=== PATIENT | female | born 1980 | race American Indian/Alaskan Native ===

== ENCOUNTER 2020-12-10 08:46 | Day surgery (SDC) | payer BC ==
[~2020-12-10 08:46] MED LIST: SODIUM CHLORIDE 0.9% 1000 ML 1,000 ML IV SCH
--- NOTE | 2020-12-10 09:31 | Discharge Summary ---
Providers - Providers Date of Admission: 12/10/20 Date of discharge: 12/10/20 Attending physician: DAMIAN INTERIANO MD Primary care physician: CIELO YEUNG NP Hospitalization Reason for admission: pre-op egd for bariatric surgery Condition: Good Procedures: egd Hospital course: Pt presented for a pre-op EGD as part of planning for up coming bariatric surgery. Procedure was uneventful and pt recovered well and was discharged to home. Disposition: DC- TO HOME OR SELFCARE Final Discharge Diagnosis (Prints w/discharge instructions): gerd, morbid obesity Core Measure Documentation - Palliative Care Palliative Care/ Comfort Measures: Not Applicable - Core Measures Any of the following diagnoses?: none Exam - Physical Exam Narrative exam: unchanged from pre-op Plan Activity: advance as tolerated Diet: low carbohydrate Follow up with: CIELO YEUNG DIRECTOR SOC[employer] WELFARE [Primary Care Provider] - 7 Days
--- NOTE | 2020-12-10 09:34 | Discharge Summary ---
Providers - Providers Date of Admission: 12/10/20 Date of discharge: 12/10/20 Attending physician: DAMIAN INTERIANO MD Primary care physician: CIELO YEUNG NP Hospitalization Reason for admission: pre-op egd for bariatric surgery Condition: Good Procedures: egd Hospital course: Pt presented for a pre-op EGD as part of planning for up coming bariatric surgery. Procedure was uneventful and pt recovered well and was discharged to home. Disposition: DC- TO HOME OR SELFCARE Final Discharge Diagnosis (Prints w/discharge instructions): gerd, morbid obesity Core Measure Documentation - Palliative Care Palliative Care/ Comfort Measures: Not Applicable - Core Measures Any of the following diagnoses?: none Exam - Physical Exam Narrative exam: same as pre-op Plan Activity: advance as tolerated Diet: low carbohydrate Follow up with: CIELO YEUNG [employer]CH[employer]IC [Primary Care Provider] - 7 Days
--- NOTE | 2020-12-10 09:35 | Operative Report ---
Operative Report Operative Report: DATE: 12/10/2020 SURGERY: Upper endoscopy. SURGEON: Sudha Olguin M.D. PROCEDURE: EGD with biopsy PRE OP DX: morbid obesity, GERD POST OP DX: morbid obesity, GERD TYPE OF ANESTHESIA: MAC. ESTIMATED BLOOD LOSS: None. COMPLICATIONS: None. SPECIMENS REMOVED: antral biopsy FINDINGS: 1. Small hiatal hernia. 2. antral gastritis INDICATIONS:INDICATION FOR PROCEDURE: Patient is a 40-year-old female with a long history of morbid obesity. She is planned to have a weight loss procedure and is here for preoperative planning EGD. PROCEDURE DETAILS: After consent was reviewed, patient was taken back to the operating room where patient was placed in the left lateral decubitus position and a bite block was placed in the mouth. After a time-out was called, MAC anesthesia was initiated. I then passed the endoscope into her oropharynx, into her esophagus, visualized the entire esophagus, which was all within normal limits. Z-line was noted to about 36cm from incisors. I then visualized the stomach and the first portion of the duodenum and there were no abnormalities I could clearly visualize except for antral gastritis. A cold forceps biopsy of the antrum was taken and will be sent to pathology to evaluate for H.pylori. I then retroflexed the scope in the stomach and visualized the hiatus and I could see a small hiatal hernia. I then desufflated the stomach and removed the endoscope. Patient tolerated procedure well and was transferred to recovery room in good and stable condition.
--- NOTE | 2020-12-10 09:38 | Anesthesia Consultation ---
Anesthesia Consult and Med Hx Date of service: 12/10/20 - Airway Anesthetic Teeth Evaluation: Good (braces upper and lower) ROM Head & Neck: Adequate Mental/Hyoid Distance: Adequate Mallampati Class: Class II Intubation Access Assessment: Probably Good - Pre-Operative Health Status ASA Pre-Surgery Classification: ASA3 Proposed Anesthetic Plan: MAC - Pulmonary Hx Smoking: No Hx Respiratory Symptoms: No Hx Sleep Apnea: Yes (has not started CPAP yet) - Cardiovascular System Hx Hypertension: Yes - Central Nervous System CVA: No - Endocrine Hx Renal Disease: No Hx Liver Disease: No Hx Insulin Dependent Diabetes: No Hx Non-Insulin Dependent Diabetes: No Hx Thyroid Disease: No - Other Systems Hx Obesity: Yes (BMI 44)
--- NOTE | 2020-12-10 09:38 | Anesthesia Day of Surgery ---
Anesthesia Day of Surgery - Day of Surgery Patient Examined: Yes Patient H&P Reviewed: Yes Patient is NPO: Yes
[2020-12-10] MEDS ORDERED: propofoL 200 MG/20 ML VIAL IV ONE (10:09)
[2020-12-10 11:11] VITALS: BP 152/97
--- NOTE | 2020-12-10 12:36 | Post Anesthesia Evaluation ---
- Post Anesthesia Evaluation Patient Participated: Yes Airway Patent: Yes Stable Respiratory Function: Yes Nausea/Vomiting: No Temp > 96.8F: Yes Pain Manageable: Yes Adequeate Hydration: Yes Anesthesia Complications: No
== END 2020-12-10 08:47 | disposition home or self-care (01) ==
LOC: GIO 08:46
PROVIDERS: ATTEND Surgery
DX: K21.9 Gastro-esophageal reflux disease without esophagitis (principal); E66.01 Morbid (severe) obesity due to excess calories; K29.70 Gastritis, unspecified, without bleeding; K31.89 Other diseases of stomach and duodenum; K44.9 Diaphragmatic hernia without obstruction or gangrene; I10 Essential (primary) hypertension; G47.30 Sleep apnea, unspecified; Z68.41 Body mass index [BMI] 40.0-44.9, adult; Z79.899 Other long term (current) drug therapy
CPT/HCPCS: 43239; 88305; 88342; J2704; J7030

== ENCOUNTER 2020-12-13 09:23 | Outpatient (CLI) | payer BC ==
--- NOTE | 2020-12-13 11:52 | Fluoroscopy Report ---
BARIUM SWALLOW Indication: FUNCTIONAL DYSPEPSIA. Technique: Single and double contrast barium technique utilized to evaluate the esophagus. FINDINGS: To begin the exam, swallowing was evaluated in the lateral position under direct fluorosco py. Swallowing was normal. No mucosal irregularity, mass, mass effect, or critical stenosis. There were no abnormal tertiary c ontractions as seen with dysmotility. No gastroesophageal reflux. IMPRESSION: Unremarkable exam. Fluoroscopic time: 1.7 minutes Number of fluoroscopic images: 21 Signer Name: Richar Antonio Jr, MD Signed: 12/13/2020 11:47 AM Workstation Name: [id number]
== END 2020-12-13 09:24 | disposition home or self-care (01) ==
LOC: FLUORO 09:23
PROVIDERS: ATTEND Surgery
DX: K30 Functional dyspepsia (principal)
CPT/HCPCS: 74220

== ENCOUNTER 2021-02-10 05:55 | Inpatient (IN) | payer BC ==
[2021-02-05 08:03] LABS: Hematocrit 38.7 % (30.3-42.9); Mean Corpuscular HGB Conc 34 % (30-34); Mean Corpuscular Volume 80 fl (79-97); Platelet Count 266 K/mm3 (140-440); Red Blood Count 4.84 M/mm3 (3.65-5.03); Red Cell Distribution Width 14.3 % (13.2-15.2)
[2021-02-05 08:20] LABS: Alanine Aminotransferase 13 units/L (7-56); Albumin 3.7 g/dL (3.9-5); BUN/Creatinine Ratio 11; Blood Urea Nitrogen 10 mg/dL (7-17); Calcium 8.2 mg/dL (8.4-10.2); Hemolysis Index 9
--- NOTE | 2021-02-05 11:18 | Anesthesia Consultation ---
Anesthesia Consult and Med Hx Date of service: 02/10/21 - Airway Anesthetic Teeth Evaluation: Good ROM Head & Neck: Adequate Mental/Hyoid Distance: Adequate Mallampati Class: Class I Intubation Access Assessment: Good - Pulmonary Exam CTA: Yes - Cardiac Exam Cardiac Exam: RRR - Pre-Operative Health Status ASA Pre-Surgery Classification: ASA3 Proposed Anesthetic Plan: General - Pulmonary Hx Smoking: No Hx Respiratory Symptoms: No (normal PFTs) Hx Sleep Apnea: Yes (compliant with CPAP) - Cardiovascular System Hx Hypertension: Yes Hx Heart Attack/AMI: No (normal nuc stress test) Hx Percutaneous Transluminal Coronary Angioplasty (PTCA): No - Central Nervous System CVA: No - Gastrointestinal Hx Gastroesophageal Reflux Disease: No - Endocrine Hx Renal Disease: No Hx Liver Disease: No Hx Insulin Dependent Diabetes: No Hx Non-Insulin Dependent Diabetes: No Hx Thyroid Disease: No - Other Systems Hx Obesity: Yes (BMI 45) - Additional Comments Anesthesia Medical History Comments: No hx anesthetic complications.
[2021-02-10] MEDS ORDERED: ceFAZolin/Water 2 GM/20 ML 2 GM/20 ML SYRINGE IV NR (06:00)
[2021-02-10] MEDS ORDERED: ENOXAPARIN 40 MG/0.4 ML INJ SUB-Q NR (06:00)
[2021-02-10] MEDS ORDERED: GABAPENTIN 500 MG/10 ML ORAL LIQD PO NR (06:00)
[2021-02-10] MEDS ORDERED: ACETAMINOPHEN IV 1,000 MG/100 ML BOTTLE IV NR (06:00)
[2021-02-10] MEDS ORDERED: MIDAZOLAM 2 MG/2 ML INJ IV NR (06:00)
[2021-02-10] MEDS ORDERED: LACTATED RINGERS 1,000 ML IV SCH (06:00)
[2021-02-10] MEDS ORDERED: SCOPOLAMINE TRANSDERMAL PATCH 72 HR TD NR (06:00)
[2021-02-10] MEDS ORDERED: metroNIDAZOLE/NS 500 MG/100 ML 500 MG/100 ML BAG IV NR (06:00)
--- NOTE | 2021-02-10 07:00 | Anesthesia Day of Surgery ---
Anesthesia Day of Surgery - Day of Surgery Patient Examined: Yes Patient H&P Reviewed: Yes Patient is NPO: Yes
[2021-02-10] MEDS ORDERED: ROCURONIUM 50 MG/5 ML INJ IV ONE ×2 (07:11→08:57)
[2021-02-10] MEDS ORDERED: LIDOCAINE MPF (2%) 20 MG/1 ML VIAL 5 ML ONE (07:11)
[2021-02-10] MEDS ORDERED: ONDANSETRON 4 MG/2 ML INJ ONE (07:11)
[2021-02-10] MEDS ORDERED: dexAMETHasone 20 MG/5 ML VIAL ONE (07:11)
[2021-02-10] MEDS ORDERED: BUPIVACAINE/PF (0.25%) 2.5 MG/ML 30 ML VIAL INFILTRATI ONE ×2 (07:14→08:36)
[2021-02-10] MEDS ORDERED: LIDOCAINE 1%/EPINEPHRINE 1:100,000 VIAL (20 ML) INFILTRATI ONE ×2 (07:14→08:41)
[2021-02-10] MEDS ORDERED: SODIUM CHLORIDE P/F VIAL 10 ML 10 ML ONE (07:16)
[2021-02-10] MEDS ORDERED: KETAMINE/STERILE WATER 50 MG/ML SYRINGE ONE (07:17)
[2021-02-10] MEDS ORDERED: MAGNESIUM SULFATE 4 GM/100 ML BAG IV ONE (07:22)
[2021-02-10] MEDS ORDERED: PHENYLEPHRINE/NS 1,000 MCG/10 ML SYRINGE (OR USE) IV ONE ×2 (08:04→09:06)
[2021-02-10] MEDS ORDERED: SODIUM CHLORIDE 0.9% IRR 1,500 ML BOTTLE IR ONE (08:42)
[2021-02-10] MEDS ORDERED: LACTATED RINGERS 1,000 ML ONE (09:17)
[2021-02-10] MEDS ORDERED: ONDANSETRON 4 MG/2 ML INJ IV PRN ×2 (09:23→11:00)
[2021-02-10] MEDS ORDERED: SUGAMMADEX SODIUM 200 MG/2 ML VIAL IV ONE (09:44)
--- NOTE | 2021-02-10 10:23 | Operative Report ---
Operative Report Operative Report: DATE: 02/10/2021 Surgeon: Sudha Olguin MD Radio Engineering Teacher surgeon: Ciera Odonnell CSA MD Pre-op Dx: morbid obesity Post-op Dx: morbid obesity Procedure: 1. laparoscopic sleeve gastrectomy, 2. hiatal hernia repair Anesthesia: GETA and TAP block EBL: <10ml Specimen: gastric remnant Complication: none immediate Indication: 40 year old female with a history of morbid obesity . Pt is here for sleeve gastrectomy for weight loss to achieve healthier weight and improve or resolve his co-morbidities. She expressed understanding of the risks and benefits. PROCEDURE IN DETAIL: After consent was reviewed, patient was taken back to the operating room, where patient was placed supine on the bed with both arms out. The patient's legs were doubly strapped to the bed. Patient had a foot board in place. Patient had a body warmer placed by anesthesia. General anesthesia was induced with successful endotracheal intubation. Patient was then prepped and draped in normal sterile surgical fashion. After a time-out was called, I made a stab incision in the left subcostal area and placed a Veress needle through this incision and insufflated the abdomen to 18 mmHg pressure. I then counted down a handsbreadth below the xiphoid process in the midline and slightly left lateral injected local anesthetic and made about 1 cm transverse incision. I then used a 5-mm Optiview trocar to enter into the abdomen. There was no gross injury to any intra-abdominal structures. I then placed a 30-degree scope through this port and inspected the abdomen. I then placed a 8-mm port in the right upper quadrant, and 1 5mm in the epigastric area below the costovertebral angle. I then placed a 15-mm port about a handsbreadth in the right mid abdomen. After which a 5mm port was placed in left upper quadrant port along the anterior axillary line in a similar fashion. A liver retractor was placed to the epigastric port to elevate the left lateral lobe and liver. There was a small hiatal hernia appreciated that was accentuated with right and left crural dissection. Hiatal hernia sac was dissected from the crura until the GE junction was resting about 2cm below the level of the diaphragm without tension. An anterior crura-plasty was preformed a U-stitch using surgidac suture. The anterior gastric fat pad was excised. Starting approximately 6 cm proximal to the pylorus, using a LigaSure device the short gastrics were taken all the way to the left kam. Once the lateral portion of the stomach was mobile anesthesia passed a 40 Kazakh bougie along the medial aspect to act as a stent. Using serial firings of endoscopic stapler to gold, followed by 4 blue, the lateral portion of the stomach was transected making sure to did not close to the 2 cm to the incisura. All staple loads were supported with Ethicon buttress strips. The sleeve stomach was seen to be without kink obstruction or twisting. The pr essure was decreased to 10 mmHg. The staple line was inspected for approximately 5 minutes. There was no significant bleeding appreciated except for a slight loose at the most distal portion of the staple line. Bleeding was minimal and easily controlled with minimal cautery. Tisseel was then sprayed along the entirety of the staple line. The liver retractor was removed. A TAP block was performed with 60ml of 0.25% marcaine along bilateral mid axillary lines starting from the subcostal region to just below the level of the umbilicus This was after the gastric remnant was grasped and pulled into the 15 mm trocar site. The stomach was extracted via the 15 mm trocar site. After the fascia had to be stretched with a Grisel clamp to easily remove the stomach, the fascia was closed using a aubree dirk device at the level of the fascia with an 0 PDS. trocars were removed under direct visualization. All skin incisions were closed with 4-0 Monocryl followed by Dermabond. Patient was awoken, extubated, and taken to recovery stable condition. All counts were correct.
[2021-02-10] MEDS: HYDROmorphone 1 MG/1 ML INJ IV PRN ×5 (10:26→11:33)
[2021-02-10] MEDS ORDERED: METOCLOPRAMIDE 10 MG/2 ML INJ IV PRN (11:00)
[2021-02-10] MEDS ORDERED: hydrALAZINE 20 MG/1 ML INJ IV PRN (11:00)
[2021-02-10] MEDS ORDERED: SIMETHICONE 80 MG CHEW TAB PO PRN (11:00)
[2021-02-10] MEDS: ACETAMINOPHEN IV 1,000 MG/100 ML BOTTLE IV SCH ×3 (13:02→23:11)
[2021-02-10] MEDS: KETOROLAC 30 MG/1 ML INJ IV SCH ×3 (13:03→23:17)
[2021-02-10] MEDS: PANTOPRAZOLE 40 MG INJ IV SCH (13:03)
--- NOTE | 2021-02-10 15:06 | Post Anesthesia Evaluation ---
- Post Anesthesia Evaluation Patient Participated: Yes Airway Patent: Yes Stable Respiratory Function: Yes Nausea/Vomiting: No Temp > 96.8F: Yes Pain Manageable: Yes Adequeate Hydration: Yes Anesthesia Complications: No Block Receding Appropriately: Not Applicable Patient on Ventilator: No
[2021-02-10] MEDS: MORPHINE 2 MG/1 ML INJ IV PRN ×3 (15:54→23:18)
[2021-02-10] MEDS: ceFAZolin/NS 1 GM/50 ML 1 GM/50 ML BAG IV SCH ×2 (15:54→23:19)
[2021-02-10] MEDS: metroNIDAZOLE/NS 500 MG/100 ML 500 MG/100 ML BAG IV SCH (17:08)
[2021-02-10] MEDS: LACTATED RINGERS 1,000 ML IV SCH (18:31)
[2021-02-11] MEDS: metroNIDAZOLE/NS 500 MG/100 ML 500 MG/100 ML BAG IV SCH ×2 (00:09→07:18)
[2021-02-11 04:53] LABS: Basophils % (Auto) 0.3 % (0.0-1.8); Hematocrit 36.3 % (30.3-42.9); Hemoglobin 12.2 gm/dl (10.1-14.3); Lymphocytes # (Auto) 1.8 K/mm3 (1.2-5.4); Lymphocytes % (Auto) 15.6 % (13.4-35.0); Mean Corpuscular HGB Conc 34 % (30-34); Mean Corpuscular Volume 81 fl (79-97); Monocytes # (Auto) 0.6 K/mm3 (0.0-0.8); Monocytes % (Auto) 5.5 % (0.0-7.3); Platelet Count 266 K/mm3 (140-440); Red Cell Distribution Width 14.2 % (13.2-15.2)
[2021-02-11] MEDS: ACETAMINOPHEN IV 1,000 MG/100 ML BOTTLE IV SCH (04:58)
[2021-02-11] MEDS: LACTATED RINGERS 1,000 ML IV SCH ×2 (04:59→10:08)
[2021-02-11] MEDS: KETOROLAC 30 MG/1 ML INJ IV SCH ×3 (04:59→17:27)
[2021-02-11 05:12] LABS: Alanine Aminotransferase 11 units/L (7-56); Albumin 3.4 g/dL (3.9-5); BUN/Creatinine Ratio 10; Blood Urea Nitrogen 8 mg/dL (7-17); Calcium 8.3 mg/dL (8.4-10.2); Hemolysis Index 0
--- OUTSIDE RECORDS SUMMARY | 2021-02-11 08:13 | External Medical Summary ---
:[address] [facility], [facility] Address [address] [place] [address] Care Team Providers Name Role Phone Sudha Olguin Unavailable [phone] PROBLEMS Type Condition ICD9-CM [id number] Onset Condition W/U Status Risk SNOM ED Notes Code Code Dates Status Code Problem Major F32.9 Active confirmed 82866313 depressive disorder, single episode, unspecified Problem Morbid E66.01 Active confirmed 142173232 (severe) obesity due to excess calories Problem Essential I10 Active confirmed 89859377 (primary) hypertension Problem Essential I10 Active confirmed 04739260 (primary) hypertension Problem Sleep apnea, G47.30 Active confirmed 6940039 6 unspecified Problem Sleep G47.9 Active confirmed 84465270 disorder, unspecified Problem Body mass Z68.41 Active confirmed 840502208 index (BMI) 40.0-44.9, adult Problem Unspecified M19.90 Active confirmed 06975462 6 osteoarthriti s, unspecified site Problem Functional K30 Active confirmed 2121132 dyspepsia Problem Gastro-esopha K21.9 Active confirmed 197559 005 geal reflux disease without esophagitis ALLERGIES No Known Allergies ENCOUNTERS from 1980 to 2021-02-10 Encounter Location Date Provider Diagnosis [facility] [address], [place] [address] IMMUNIZATIONS No Information SOCIAL HISTORY Sex Assigned At : Social History Observation Description Sex Assigned At Unknown REASON FOR REFERRAL from 1980 to 2021-02-10 Diagnosis 1 Functional dyspepsia (K30) Diagnosis 2 Morbid (severe) obesity due to excess calories (E66.01) Diagnosis 3 Sleep apnea, unspecified (G4 7.30) Diagnosis 4 Essential (primary) hyperten cristofer (I10) Diagnosis 5 Gastro-esophageal reflux dis ease without esophagitis (K21.9) Diagnosis 6 Sleep disorder, unspecified (G47.9) Diagnosis 7 Major depressive disorder, s selene episode, unspecified (F32.9) Diagnosis 8 Unspecified osteoarthritis, unspecified site (M19.90) Diagnosis 9 Body mass index (BMI) 40.0-4 4.9, adult (Z68.41) Diagnosis 10 Essential (primary) hyperten cristofer (I10) Referral Organization [facility] Referring Provider First Name Marshallbree Referring Provider Last Name Clau Referring Provider Specialty Surgery Referred Provider [facility], - Referral Priority Routine VITAL SIGNS No information MEDICATIONS Medication SIG (Take, Route, Notes Start Date End Date Status Frequency, Duration) Ondansetron HCl 4 MG 1-2 tablet Orally q January, Active 4-6 hors prn nausea for 30 day(s) Melatonin 3 MG 1 tablet at bedtime A ctive as needed Orally Once a day for 30 day(s) Esomeprazole Magnesium 40 MG 1 capsule Orally Once January, Active a day for 30 day(s) Hydrochlorothiazide 25 MG 1 tablet in the Active morning Orally Once a day for 30 day(s) PROCEDURES No Information RESULTS No Results REASON FOR VISIT Gastric Sleeve MEDICAL (GENERAL) HISTORY Type Description Date Medical History Morbid (severe) obesity due to excess ca lories Medical History Essential (primary) hypertension Medical History Sleep apnea, unspecified Medical History Unspecified osteoarthritis, unspecified site Medical History Major depressive disorder, single episod e, unspecified Medical History Body mass index (BMI) 40.0-44.9, adult Medical History Functional dyspepsia Surgical History December 31, 2017 Goals Section No Information Health Concerns No Information MEDICAL EQUIPMENT No Information MENTAL STATUS No Information FUNCTIONAL STATUS No Information ASSESSMENTS No Information PLAN OF TREATMENT Medication Medication Name Sig Start Date Stop Date Ondansetron HCl 4 MG 1-2 tablet Orally q 4-6 hors prn January, 21 nausea for 30 day(s) Esomeprazole Magnesium 40 MG 1 capsule Orally Once a day for January, 30 day(s) Referrals Referral Date Details Insurance Providers Payer Name Payer Payer Insured Patient Coverage Coverage End Address Phone Name Relationship to Start Date Brett e Insured [place] P.OKrystal Flores [facility] [id number] [facility]
[2021-02-11] MEDS ORDERED: HYDROcodone/Acetaminophen 7.5-325MG-15ML ORAL LIQD PO PRN (10:00)
[2021-02-11] MEDS: ENOXAPARIN 40 MG/0.4 ML INJ SUB-Q SCH (10:07)
[2021-02-11] MEDS: PANTOPRAZOLE 40 MG INJ IV SCH (10:07)
--- NOTE | 2021-02-11 15:00 | Post Anesthesia Evaluation ---
- Post Anesthesia Evaluation Patient Participated: Yes Airway Patent: Yes Stable Respiratory Function: Yes Nausea/Vomiting: Yes (still has some nausea, mostly controlled with antiemetics) Temp > 96.8F: Yes Pain Manageable: Yes Adequeate Hydration: Yes Anesthesia Complications: Yes (PONV) Block Receding Appropriately: Yes Patient on Ventilator: No Other Comments: severe nausea after the surgery got better after administing antiemetics
--- NOTE | 2021-02-11 16:31 | Progress Note ---
Assessment and Plan POD#1 s/p lap gastric sleeve with hiatal hernia repair. Afebrile and stable. Will keep overnight to increase oral intake. Will d/c tomorrow. Subjective Date of service: 02/11/21 Narrative: no acute events overnight. Pt complains of some epigastric discomfort that is limiting the amount she is drinking. She denies significant nausea or vomiting. Objective Vital Signs - 12hr 02/11/21 02/11/21 02/11/21 07:27 10:03 11:43 Temperature 98.2 F 98.2 F Pulse Rate 83 76 Respiratory 16 16 Rate Blood Pressure 153/94 152/94 O2 Sat by Pulse 98 95 98 Oximetry 02/11/21 13:09 Temperature Pulse Rate Respiratory Rate Blood Pressure O2 Sat by Pulse 96 Oximetry - General physical appearance well developed, well nourished, obese - Respiratory normal expansion, normal respiratory effort - Abdomen soft, not distended, not rebound, not guarding, not rigid, other (incisions c/d/i, appropriately tender to palpation) - Labs 02/11/21 04:22 02/11/21 04:22 Diabetes panel 02/11/21 Range/Units 04:22 Sodium 137 (137-145) mmol/L Potassium 3.8 (3.6-5.0) mmol/L Chloride 104.8 (98-107) mmol/L Carbon Dioxide 25 (22-30) mmol/L BUN 8 (7-17) mg/dL Creatinine 0.8 (0.6-1.2) mg/dL Glucose 101 H (65-100) mg/dL Calcium 8.3 L (8.4-10.2) mg/dL AST 12 (5-40) units/L ALT 11 (7-56) units/L Alkaline Phosphatase 71 (35-129) units/L Total Protein 6.0 L (6.3-8.2) g/dL Albumin 3.4 L (3.9-5) g/dL Calcium panel 02/11/21 Range/Units 04:22 Calcium 8.3 L (8.4-10.2) mg/dL Albumin 3.4 L (3.9-5) g/dL Pituitary panel 02/11/21 Range/Units 04:22 Sodium 137 (137-145) mmol/L Potassium 3.8 (3.6-5.0) mmol/L Chloride 104.8 (98-107) mmol/L Carbon Dioxide 25 (22-30) mmol/L BUN 8 (7-17) mg/dL Creatinine 0.8 (0.6-1.2) mg/dL Glucose 101 H (65-100) mg/dL Calcium 8.3 L (8.4-10.2) mg/dL Adrenal panel 02/11/21 Range/Units 04:22 Sodium 137 (137-145) mmol/L Potassium 3.8 (3.6-5.0) mmol/L Chloride 104.8 (98-107) mmol/L Carbon Dioxide 25 (22-30) mmol/L BUN 8 (7-17) mg/dL Creatinine 0.8 (0.6-1.2) mg/dL Glucose 101 H (65-100) mg/dL Calcium 8.3 L (8.4-10.2) mg/dL Total Bilirubin 0.30 (0.1-1.2) mg/dL AST 12 (5-40) units/L ALT 11 (7-56) units/L Alkaline Phosphatase 71 (35-129) units/L Total Protein 6.0 L (6.3-8.2) g/dL Albumin 3.4 L (3.9-5) g/dL
[2021-02-12] MEDS: KETOROLAC 30 MG/1 ML INJ IV SCH ×2 (00:35→06:34)
[2021-02-12] MEDS: LACTATED RINGERS 1,000 ML IV SCH ×2 (05:12)
[2021-02-12 05:31] LABS: Basophils # (Auto) 0.1 K/mm3 (0.0-0.1); Basophils % (Auto) 0.6 % (0.0-1.8); Eosinophils # (Auto) 0.1 K/mm3 (0.0-0.4); Eosinophils % (Auto) 0.7 % (0.0-4.3); Hematocrit 34.4 % (30.3-42.9); Hemoglobin 11.8 gm/dl (10.1-14.3); Lymphocytes # (Auto) 2.9 K/mm3 (1.2-5.4); Lymphocytes % (Auto) 33.2 % (13.4-35.0); Mean Corpuscular HGB Conc 34 % (30-34); Mean Corpuscular Volume 80 fl (79-97); Monocytes # (Auto) 0.4 K/mm3 (0.0-0.8); Monocytes % (Auto) 5.1 % (0.0-7.3); Platelet Count 237 K/mm3 (140-440); Red Blood Count 4.29 M/mm3 (3.65-5.03); Red Cell Distribution Width 14.2 % (13.2-15.2)
[2021-02-12 05:56] LABS: Alanine Aminotransferase 10 units/L (7-56); Albumin 3.3 g/dL (3.9-5); BUN/Creatinine Ratio 8; Blood Urea Nitrogen 6 mg/dL (7-17); Calcium 8.4 mg/dL (8.4-10.2); Hemolysis Index 3
[2021-02-12] MEDS: PANTOPRAZOLE 40 MG INJ IV SCH (09:18)
[2021-02-12] MEDS: ENOXAPARIN 40 MG/0.4 ML INJ SUB-Q SCH (09:18)
--- NOTE | 2021-02-12 11:39 | Discharge Summary ---
Providers - Providers Date of Admission: 02/10/21 05:55 Date of discharge: 02/12/21 Attending physician: DAMIAN INTERIANO MD 02/10/21 10:02 Physical Therapy Evaluation and Treat [CONS] Routine Comment: Reason For Exam: s/p bariatric surgery Primary care physician: CIELO YEUNG NP Hospitalization Reason for admission: s/p lap gastric sleeve with hiatal hernia repair Condition: Good Procedures: laparoscopic sleeve gastrectomy with hiatal hernia repair Hospital course: pt had an uneventful lap gastric sleeve with expected post op course. She was slow initially to taking enough oral liquids due to discomfort but she improved by post op day 2. She remained afebrile, stable with normal labs and vital signs. She was showing no clinical signs of leak or bleeding at the time of discharge. Disposition: DC- TO HOME OR SELFCARE Final Discharge Diagnosis (Prints w/discharge instructions): morbid obesity Core Measure Documentation - Palliative Care Palliative Care/ Comfort Measures: Not Applicable - Core Measures Any of the following diagnoses?: none Exam - Constitutional Vitals: Temp Pulse Resp BP Pulse Ox 98.9 F 70 18 111/53 98 02/12/21 07:18 02/12/21 07:18 02/12/21 07:18 02/12/21 07:18 02/12/21 10:24 General appearance: Present: no acute distress, obese - Cardiovascular Heart Sounds: Present: S1 & S2 - Extremities Extremities: no ischemia - Abdominal General gastrointestinal: Present: deferred, soft, non-tender, non-distended, other (incisions c/d/i) Plan Activity: advance as tolerated Diet: clear liquids Wound: open to air, keep clean and dry Follow up with: CIELO YEUNG [employer]N [Primary Care Provider] - 7 Days
[2021-02-12 12:28] VITALS: BP 137/48
[2021-02-13] MEDS ORDERED: PANTOPRAZOLE 40 MG TAB PO SCH (07:30)
== END 2021-02-12 15:00 | disposition home or self-care (01) | DRG 621 ==
LOC: 3A 05:55 → 3B-SURG 10:50
PROVIDERS: ADMIT Surgery; ATTEND Surgery
PROC: 0DB64Z3 Excision of Stomach, Percutaneous Endoscopic Approach, Vertical (ICD-10-PCS; principal; 2021-02-10)
PROC: 0BQT4ZZ Repair Diaphragm, Percutaneous Endoscopic Approach (ICD-10-PCS; 2021-02-10)
PROC: 5A09457 Assistance with Respiratory Ventilation, 24-96 Consecutive Hours, Continuous Positive Airway Pressure (ICD-10-PCS; 2021-02-11)
DX: E66.01 Morbid (severe) obesity due to excess calories (principal); I10 Essential (primary) hypertension; G47.30 Sleep apnea, unspecified; K44.9 Diaphragmatic hernia without obstruction or gangrene; Z20.822 Contact with and (suspected) exposure to COVID-19; Z68.42 Body mass index [BMI] 45.0-49.9, adult; Z71.3 Dietary counseling and surveillance
CPT/HCPCS: 36415; 80053; 82962; 84703; 85025; 85027; 88307; 88342; 94660; G0378; C9113; C9250; J0131; J0690; J1100; J1170; J1650; J1885; J2250; J2270; J2370; J2405; J2704; J2765; J3475; J3490; J7120; U0003